=== PATIENT | female | born 1990 | race Caucasian/White ===

== ENCOUNTER 2020-10-28 14:17 | Emergency (ER) | payer SELFPAY ==
[~2020-10-28] VITALS: Ht 157.5 cm; Wt 42.4 kg
--- NOTE | 2020-10-28 14:44 | NUR ---
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
--- NOTE | 2020-10-28 14:53 | NUR ---
PT AMBULATORY TO ROOM, CHANGED INTO GOWN. MONITORS IN PLACE. CALL LIGHT WITHIN REACH. MOTHER AT BS
--- NOTE | 2020-10-28 14:56 | NUR ---
PT AMBULATORY TO BR WITH UPRIGHT STEADY GAIT
[2020-10-28 15:03] LABS: ALANINE AMINOTRANSFERASE 12 U/L (12-78); ALBUMIN 4.1 g/dL (3.4-5.0); ANION GAP 6 mmol/L (5-15); CALCIUM 8.9 mg/dL (8.5-10.1); CHLORIDE 110 mmol/L (98-107)
[2020-10-28 15:06] LABS: BASOPHILS % (AUTO) 1 % (0-1); EOSINOPHILS % (AUTO) 1 % (1-7); LYMPHOCYTES % (AUTO) 17 % (22-44); MEAN CORPUSCULAR HGB CONC 32.2 g/dL (32.4-35.8); MEAN PLATELET VOLUME 7.6 fL (7.4-10.4); MONOCYTES % (AUTO) 5 % (2-9); NEUTROPHILS % (AUTO) 77 % (42-75); PLATELET COUNT 410 x10^3/uL (130-400); RED CELL DISTRIBUTION WIDTH 16.9 % (9.6-15.2)
[2020-10-28 15:07] LABS: ALKALINE PHOSPHATASE 88 U/L (45-117); BILIRUBIN,TOTAL 0.5 mg/dL (0.2-1.0)
--- NOTE | 2020-10-28 15:10 | NUR ---
MEDICAL STUDENT AT BS
[2020-10-28 15:17] LABS: MD NO
[2020-10-28 15:37] LABS: MICROSCOPIC NOT IND
[2020-10-28 16:03] VITALS: BP 107/73
--- NOTE | 2020-10-28 16:05 | NUR ---
MEDICAL STUDENT AT BS
--- NOTE | 2020-10-28 16:05 | NUR ---
PT RESTING ON [employer], WATCHING TV. MOTHER AT BS. NADN/VSS. CALL LIGHT WITHIN REACH. NO NEEDS AT THIS TIME
--- NOTE | 2020-10-28 16:13 | NUR ---
Patient given discharge instructions and they have confirmed that they understand the instructions. Patient ambulatory with steady gait.
== END 2020-10-28 16:21 | disposition home or self-care (01) ==
LOC: ED 16:15
DX: G89.29 Other chronic pain (principal); R10.13 Epigastric pain; R11.2 Nausea with vomiting, unspecified; I10 Essential (primary) hypertension
CPT/HCPCS: 36415; 74021; 80053; 81003; 82962; 83690; 84703; 85025; 99284